=== PATIENT | male | born 1935 | race Caucasian/White ===

== ENCOUNTER 2016-06-06 13:42 | Observation (INO) | payer BC, OTHER ==
[~2016-06-06] VITALS: Ht 175.3 cm; Wt 92.9 kg
[~2016-06-06 13:42] MED LIST: DONE1TAB26 PO; ERGO500037 PO; FLUT0.15 NAE; FRS/40 PO; GLC/500 PO; INSDGIPEN SC; LEVO112T2 PO; LINA1TAB PO; METHENAMINE HIPPURATE PO; NZRCR TOP; PRLSR20 PO; QUIN5TAB12 PO; SIMV40TA2 PO; UMEC1AER INH
[2016-06-06] MEDS ORDERED: SODIUM CHLORIDE 0.9% 1000ML 500 ML IV STA (14:11)
--- NOTE | 2016-06-06 14:17 | EMERGENCY ROOM VISIT NOTE ---
History Report prepared by Hilda: Kandi Alvarado Under the Supervision of: Dr. Ezio Cool M.D. First contact with patient: 13:59 Chief Complaint: IRREGULAR HEARTBEAT Stated Complaint: IRREGULAR HEARTBEAT Nursing Triage Summary: pt to the ED with c/o feeling poorly for several weeks and HR 130-140's states they gave him meds for it and it has been in the 110's feels like his heart is racing with weakness in legs and feeling tired sunday got lightheaded while week wacking and had near syncope +Sob no pain now History of Present Illness The patient is a 80 year old male who presents to the Emergency Room with complaints of an intermittent irregular heart rate that began one month ago. The patient states that today he noted that his blood pressure was elevated and his pulse was 96 beats per minute but irregular. The patient states that each time his heart rate feels irregular, he becomes pale and diaphoretic. The patient notes increased chest pain with his irregular heart rate. He states that his symptoms have been alleviated with rest. The patient states that each time his rate is irregular he has been feeling extremely fatigued. He states that he follows with a food critic in [place] for two coronary artery blockages. The patient notes a 50% blockage and an 80% blockage that was revealed one year ago. He states that he has been feeling short of breath and notes a history of COPD. The patient additionally notes a history of diabetes. He states that he takes two 81 mg aspirin daily. The patient denies any melena or hematochezia. He denies any history of a previous GI bleed or previous blood transfusion. Source of History: patient Onset: one month ago Position: other (global) Quality: other (irrgeular heart rate) Timing: intermittent Associated Symptoms: + SOB, + chest pain, + diaphoresis, + fatigue, No hematochezia, No melena Note: Associated Symptoms: pale Review of Systems See HPI for pertinent positives & negatives. A total of 10 systems reviewed and were otherwise negative. Past Medical & Surgical Medical Problems: (1) Angina pectoris (2) CAD (coronary artery disease) (3) Diabetes (4) High cholesterol (5) HTN (hypertension) Family History No pertinent family history stated. Social History Smoking Status: Former Smoker Marital Status: Housing Status: lives with family Occupation Status: retired Current/Historical Medications Scheduled Atorvastatin (Lipitor), 20 MG PO HS Carvedilol (Coreg), 3.125 MG PO BID Diltiazem Hcl (Cardizem), 120 MG PO DAILY Donepezil Hydrochloride (Donepezil Hcl), 10 MG PO DAILY Furosemide (Lasix), 20 MG PO DAILY Insulin Glargine (Lantus Solostar), 20 UNITS SC DAILY Levothyroxine Sodium (Synthroid), 112 MCG PO DAILY Metformin Hcl (Glucophage), 1,000 MG PO BID Methenamine Hippurate (Hiprex), 1 GM PO BID Omeprazole (Prilosec), 20 MG PO DAILY Quinapril HCl (Quinapril HCl), 5 MG PO DAILY Allergies Coded Allergies: No Known Allergies (Unverified , 02/15/16) Physical Exam Vital Signs Date Time Temp Pulse Resp B/P Pulse Ox O2 Delivery O2 Flow Rate FiO2 06/06/16 15:35 78 18 110/65 98 Room Air 06/06/16 14:32 85 06/06/16 14:31 91 16 133/76 06/06/16 13:44 36.4 88 20 143/86 97 Room Air Physical Exam GENERAL: Patient is in no acute distress. HEENT: No acute trauma, normocephalic atraumatic, mucous membranes moist, no nasal congestion, no scleral icterus. NECK: No stridor, no adenopathy, no meningismus, trachea is midline. LUNGS: Clear to auscultation bilaterally, no wheeze, no rhonchi, breath sounds equal. HEART: Without murmurs gallops or rubs, regular rate and rhythm. ABDOMEN: Soft, nontender, bowel sounds positive, no hernias, no peritonitis. RECTAL: Brown stool, heme negative. EXTREMITIES: No cyanosis or edema, full range of motion of all the joints without pain or difficulty, no signs for acute trauma. NEUROLOGIC: Oriented x 3, no acute motor or sensory deficits, no focal weakness. SKIN: No rash, no jaundice, no diaphoresis. Medical Decision & Procedures ER Provider Diagnostic Interpretation: X-ray results as stated below per interpretation by me and the radiologist: CHEST ONE VIEW PORTABLE CLINICAL HISTORY: CHEST PAIN dyspnea COMPARISON STUDY: 02/15/2016 FINDINGS: The bones soft tissues and hemidiaphragms are normal. The cardiomediastinal silhouette is normal. The lungs are clear. The pulmonary vasculature is normal. IMPRESSION: Negative chest. Electronically signed by: Neil Hernandez M.D. 06/06/2016 2:29 PM Dictated Date/Time: 06/06/2016 2:28 PM Laboratory Results 06/06/16 14:25 06/06/16 14:25 Test 06/06/16 14:25 Red Blood Count 3.62 M/uL (4.7-6.1) Mean Corpuscular Volume 82.0 fL (80-100) Mean Corpuscular Hemoglobin 26.2 pg (25-34) Mean Corpuscular Hemoglobin Concent 32.0 g/dl (32-36) RDW Standard Deviation 45.2 fL (36.4-46.3) RDW Coefficient of Variation 15.2 % (11.5-14.5) Mean Platelet Volume 9.0 fL (7.4-10.4) Prothrombin Time 10.7 SECONDS (9.0-12.0) Prothromb Time International Ratio 1.0 (0.9-1.1) Activated Partial Thromboplast Time 26.9 SECONDS (21.0-31.0) Partial Thromboplastin Ratio 1.0 Anion Gap 9.0 mmol/L (3-11) Est Creatinine Clear Calc Drug Dose 57.4 ml/min Estimated GFR () 66.7 Estimated GFR (Non- 57.6 BUN/Creatinine Ratio 12.3 (10-20) Calcium Level 8.4 mg/dl (8.5-10.1) Magnesium Level 2.1 mg/dl (1.8-2.4) Total Bilirubin 0.5 mg/dl (0.2-1) Aspartate Amino Transf (AST/SGOT) 13 U/L (15-37) Alanine Aminotransferase (ALT/SGPT) 28 U/L (12-78) Alkaline Phosphatase 71 U/L (45-117) Troponin I < 0.015 ng/ml (0-0.045) Total Protein 7.3 gm/dl (6.4-8.2) Albumin 3.6 gm/dl (3.4-5.0) Globulin 3.7 gm/dl (2.5-4.0) Albumin/Globulin Ratio 1.0 (0.9-2) Thyroid Stimulating Hormone (TSH) 0.876 uIu/ml (0.300-4.500) Free Thyroxine 1.29 ng/dl (0.80-1.60) Laboratory results reviewed by me. Medications Administered Medications (Trade) Dose Ordered Sig/Maya Route Start Time Stop Time Status Last Admin Dose Admin Sodium Chloride (Nss 1000ml) 500 ml @ 999 mls/hr Q31M STAT IV 06/06/16 14:11 06/06/16 14:41 DC 06/06/16 14:29 999 MLS/HR ECG Indication: chest pain, other (irregular heart rate) Rate (beats per minute): 89 Rhythm: normal sinus Findings: no acute ischemic change, no ectopy ED Course 1401: The patient was evaluated in room B11B. A complete history and physical exam was performed. 1411: Ordered Sodium Chloride 500 ml @ 999 mls/hr IV. 1515: I reevaluated the patient at this time and he is doing fine. I did a rectal exam at this time. See physical exam for further detail. I discussed all the exam findings with him and I discussed the treatment plan. He verbalized complete understanding and agreement. He will be evaluated for further treatment. 1523: I discussed the patients case with DAINA Torres. He is going to evaluate the patient for further treatment. Medical Decision The patient is a 80 year old male who presents to the ED with complaints of an irregular heart rate. Differential diagnoses considered include cardiac ischemia, SVT, a-fib, angina, electrolyte imbalance, anemia, CT. There is no leukocytosis. The patient is anemic with a hemoglobin of 9.5-stool heme testing was negative. There was no significant electrolyte abnormality, kidney failure or hepatitis. No coagulopathy. EKG showed a normal sinus rhythm , no acute ischemia. Cardiac enzyme testing 1 is not suggestive of acute cardiac injury. Chest x-ray shows no mediastinal widening, pneumonia or pneumothorax. The patient presents with exertional discomfort in his chest and shortness of breath. He has felt palpitations and extreme fatigue. Things have been worsening. He has known cardiac disease. The patient received IV saline, he was asymptomatic during his time here in the emergency room. The patient deserves further cardiac workup. Admission/observation is warranted. Certainly, angina is a concern. I spoke to the patient and to case management. The on-call hospitalist was consulted. Consults Time Called: 1520 Consulting Physician: DAINA Torres Returned Call: [phone] I discussed the patients case with DAINA Torres. He is going to evaluate the patient for further treatment. Impression Primary Impression: Palpitations Additional Impressions: Shortness of breath Anemia Scribe Attestation The scribe's documentation has been prepared under my direction and personally reviewed by me in its entirety. I confirm that the note above accurately reflects all work, treatment, procedures, and medical decision making performed by me. Departure Information Dispostion Being Evaluated By Hospitalist Referrals Sergey Li MD (PCP) Problem Qualifiers
--- NOTE | 2016-06-06 14:31 | DIAGNOSTIC IMAGING REPORT ---
CHEST ONE VIEW PORTABLE CLINICAL HISTORY: CHEST PAIN dyspnea COMPARISON STUDY: 02/15/2016 FINDINGS: The bones soft tissues and hemidiaphragms are normal. The cardiomediastinal silhouette is normal. The lungs are clear. The pulmonary vasculature is normal. IMPRESSION: Negative chest. Electronically signed by: Neil Hernandez M.D. 06/06/2016 2:29 PM Dictated Date/Time: 06/06/2016 2:28 PM
[2016-06-06 14:33] LABS: HEMATOCRIT 29.7 % (42-52); MEAN CORPUSCULAR HEMOGLOBIN 26.2 pg (25-34); PLATELET COUNT 307 K/uL (130-400); RED BLOOD COUNT 3.62 M/uL (4.7-6.1); WHITE BLOOD COUNT 7.96 K/uL (4.8-10.8)
[2016-06-06 14:43] LABS: PROTHROMBIN TIME (PATIENT) 10.7 SECONDS (9.0-12.0)
[2016-06-06] MEDS ORDERED: ATOR-22 PO (14:54)
[2016-06-06] MEDS ORDERED: METH-1117 PO (14:54)
[2016-06-06] MEDS ORDERED: DILT120T8 PO (14:54)
[2016-06-06] MEDS ORDERED: FURO-85 PO (14:54)
[2016-06-06] MEDS ORDERED: CARV3.122 PO (14:54)
[2016-06-06 14:55] LABS: ALT/SGPT 28 U/L (12-78); AST/SGOT 13 U/L (15-37); BLOOD UREA NITROGEN 15 mg/dl (7-18); BUN/CREATININE RATIO 12.3 (10-20); CALCIUM 8.4 mg/dl (8.5-10.1); CARBON DIOXIDE 26 mmol/L (21-32); CHLORIDE 104 mmol/L (98-107); GLUCOSE 165 mg/dl (70-99); MAGNESIUM 2.1 mg/dl (1.8-2.4); POTASSIUM 4.1 mmol/L (3.5-5.1); SODIUM 139 mmol/L (136-145)
[2016-06-06 15:03] LABS: ALKALINE PHOSPHATASE 71 U/L (45-117); THYROID STIMULATING HORMONE 0.876 uIu/ml (0.300-4.500)
[2016-06-06] MEDS ORDERED: ONDANSETRON INJ 2 MG/ML 2 ML VIAL IV PRN (15:45)
[2016-06-06] MEDS ORDERED: ACETAMINOPHEN 325 MG TAB PO PRN (15:45)
[2016-06-06] MEDS ORDERED: NITROGLYCERIN 0.4 MG SL PER TAB CHARGE SL PRN (15:45)
[2016-06-06] MEDS ORDERED: MoRPHine SULFATE 2 MG/ML CARP IV PRN (15:45)
[2016-06-06 15:48] VITALS: O2SAT 98; Ht 175.3 cm; Wt 92.9 kg
[2016-06-06] MEDS ORDERED: GLUCOSE 40% GEL 15 GM TUBE PO PRN (16:00)
[2016-06-06] MEDS ORDERED: GLUCOSE 10 TABS/TUBE PO PRN (16:00)
[2016-06-06] MEDS ORDERED: DEXTROSE 50% 50 ML SYR IV PRN (16:00)
[2016-06-06] MEDS ORDERED: GLUCAGON FOR INJ 1 MG VIAL SQ PRN (16:00)
[2016-06-06 16:43] VITALS: BP 127/77; PULSE 90; TEMP 36.7; O2SAT 97
[2016-06-06 16:45] VITALS: O2SAT 98
--- NOTE | 2016-06-06 17:02 | History and Physical ---
History & Physical Date & Time of Service: Jun 06, 2016 at 16:39 Chief Complaint: Angina Pectoris;Cad Primary Care Physician: Sergey Li MD History of Present Illness Source: patient, family, hospital records 80 yo male with history of CAD (known lesions of 50% and 80%, no stents), HTN, DM and hyperlipidemia, presents to the ED due to tachycardia, palpitations, diaphoresis and feeling weak. This has been going on intermittently for several weeks. He notices that he gets these symptoms with even minimal exertion. He gives an example, that he can typically cut his small yard and do the weeding in an hour. However, it has taken him an entire week to get the work done this week due to palpitations, sweats and weakness any time he exerts himself. When asked about chest pain he says that he "always" has chest pain but he does not notice the pain or pressure getting worse when he exerts himself. Over the past weekend he had these symptoms when climbing a flight of stairs which is abnormal for him. Today he was visiting this hospital to see his grandchild and he felt weak, palpitations and needed to sit down after walking into the hospital. He was advised to report to the ED for evaluation. In the ED his EKG showed NSR without any ischemia and his troponin was negative. Blood work showed a Hb of 9.5. Patient unsure if this is new or not , has not been told of anemia in the past. He denies any dark discoloration to his stools. Past Medical/Surgical History Prostate cancer, s/p prostatectomy CAD - told he has a 50% lesion and 80% lesion, managed medically HTN Diabetes Hyperlipidemia Hypothyroidism s/p Appendectomy s/p Lumbar surgery s/p heart catheterization s/p right shoulder arthroscopy s/p colonoscopy Family History Father - of stroke Mother - lived until her 90's Social History Smoking Status: Former Smoker (quit 50 years ago) Alcohol Use: none Drug Use: none Marital Status: Housing status: lives with family Occupational Status: employed Allergies Coded Allergies: No Known Allergies (Unverified , 02/15/16) Home Medications Scheduled Atorvastatin (Lipitor), 20 MG PO HS Carvedilol (Coreg), 3.125 MG PO BID Diltiazem Hcl (Cardizem), 120 MG PO DAILY Donepezil Hydrochloride (Donepezil Hcl), 10 MG PO DAILY Furosemide (Lasix), 20 MG PO DAILY Insulin Glargine (Lantus Solostar), 20 UNITS SC DAILY Levothyroxine Sodium (Synthroid), 112 MCG PO DAILY Metformin Hcl (Glucophage), 1,000 MG PO BID Methenamine Hippurate (Hiprex), 1 GM PO BID Omeprazole (Prilosec), 20 MG PO DAILY Quinapril HCl (Quinapril HCl), 5 MG PO DAILY Review of Systems Constitutional: + sweats (when he has palpitations), No chills, No fatigue, No fever, No problem reported, No weakness, No weight loss Eyes: No diplopia, No discharge, No eye pain, No problem reported, No redness, No worsening of vision ENT: No dental problems, No hearing loss, No nasal symptoms, No problem reported, No sore throat, No tinnitus, No trouble swallowing, No unusual epistaxis Respiratory: No cough, No dyspnea at rest, No dyspnea on exertion, No hemoptysis, No problem reported, No shortness of breath, No sputum, No wheezing Cardiovascular: + palpitations (tachycardia), No PND, No chest pain, No claudication, No edema, No orthopnea, No problem reported Abdomen: No GI bleeding, No constipation, No diarrhea, No nausea, No pain, No problem reported, No vomiting Musculoskeletal: No calf pain, No joint pain, No muscle pain, No problem reported, No swelling Genitourinary - Male: No dysuria, No hematuria, No urinary frequency, No urinary urgency Neurologic: + problem reported (light headed), + weakness, No balance problems , No memory loss, No numbness/tingling, No paralysis, No vertigo Psychiatric: No anhedonism, No anxiety, No depression symptoms, No insomnia, No problem reported, No substance abuse Endocrine: No excessive thirst, No excessive urination, No fatigue, No problem reported Hematologic / Lymphatic: No abnormal bleeding/bruising, No clotting problems, No night sweats, No problem reported, No swollen lymph nodes Integumentary: No bleeding, No color change, No itch, No new/changing skin lesions, No problem reported, No rash Allergic / Immunologic: No environmental allergies, No food allergies, No frequent infections, No hives, No pet sensitivities, No poor healing, No problem reported, No prolonged convalescence, No seasonal allergies Physical Exam Vital Signs Date Time Temp Pulse Resp B/P Pulse Ox O2 Delivery O2 Flow Rate FiO2 06/06/16 15:48 98 Room Air 06/06/16 15:35 78 18 110/65 98 Room Air 06/06/16 14:32 85 06/06/16 14:31 91 16 133/76 06/06/16 13:44 36.4 88 20 143/86 97 Room Air General Appearance: WD/WN, no apparent distress Head: normocephalic, atraumatic Eyes: normal inspection, EOMI, sclerae normal ENT: normal ENT inspection, hearing grossly normal, pharynx normal Neck: supple, no adenopathy, no JVD, trachea midline Respiratory/Chest: chest non-tender, lungs clear, normal breath sounds, no respiratory distress, no accessory muscle use Cardiovascular: regular rate, rhythm, no edema, no gallop, no JVD, no murmur, normal peripheral pulses Abdomen/GI: normal bowel sounds, non tender, soft, no organomegaly Back: normal inspection, no CVA tenderness, no muscle spasm, normal range of motion Extremities/Musculoskelatal: normal inspection, no calf tenderness, normal capillary refill, no pedal edema, normal range of motion 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, no motor/sensory deficits, alert, normal mood/affect, normal reflexes, oriented x 3 Skin: normal color, warm/dry, no rash Lymphatic: no adenopathy Diagnostics Laboratory Results Results Past 24 Hours Test 06/06/16 14:25 Range/Units White Blood Count 7.96 4.8-10.8 K/uL Red Blood Count 3.62 4.7-6.1 M/uL Hemoglobin 9.5 14.0-18.0 g/dL Hematocrit 29.7 42-52 % Mean Corpuscular Volume 82.0 80-100 fL Mean Corpuscular Hemoglobin 26.2 25-34 pg Mean Corpuscular Hemoglobin Concent 32.0 32-36 g/dl RDW Standard Deviation 45.2 36.4-46.3 fL RDW Coefficient of Variation 15.2 11.5-14.5 % Platelet Count 307 130-400 K/uL Mean Platelet Volume 9.0 7.4-10.4 fL Prothrombin Time 10.7 9.0-12.0 SECONDS Prothromb Time International Ratio 1.0 0.9-1.1 Activated Partial Thromboplast Time 26.9 21.0-31.0 SECONDS Partial Thromboplastin Ratio 1.0 Sodium Level 139 136-145 mmol/L Potassium Level 4.1 3.5-5.1 mmol/L Chloride Level 104 98-107 mmol/L Carbon Dioxide Level 26 21-32 mmol/L Anion Gap 9.0 3-11 mmol/L Blood Urea Nitrogen 15 7-18 mg/dl Creatinine 1.20 0.60-1.40 mg/dl Est Creatinine Clear Calc Drug Dose 57.4 ml/min Estimated GFR () 66.7 Estimated GFR (Non- 57.6 BUN/Creatinine Ratio 12.3 10-20 Random Glucose 165 70-99 mg/dl Calcium Level 8.4 8.5-10.1 mg/dl Magnesium Level 2.1 1.8-2.4 mg/dl Total Bilirubin 0.5 0.2-1 mg/dl Aspartate Amino Transf (AST/SGOT) 13 15-37 U/L Alanine Aminotransferase (ALT/SGPT) 28 12-78 U/L Alkaline Phosphatase 71 45-117 U/L Troponin I < 0.015 0-0.045 ng/ml Total Protein 7.3 6.4-8.2 gm/dl Albumin 3.6 3.4-5.0 gm/dl Globulin 3.7 2.5-4.0 gm/dl Albumin/Globulin Ratio 1.0 0.9-2 Thyroid Stimulating Hormone (TSH) 0.876 0.300-4.500 uIu/ml Free Thyroxine 1.29 0.80-1.60 ng/dl CXR normal Normal EKG Impression Assessment and Plan 80 yo male with history of CAD, presents with 3 weeks of worsening palpitations , tachycardia, diaphoresis and weakness that are brought on by exertion - Exertional palpitations/weakness/diaphoresis: possible anginal equivalent in patient with known CAD and DM so symptoms could be atypical EKG normal and troponin negative, observe on tele and cycle enzymes, request records from [facility] could also be paroxysmal atrial fibrillation, since his symptoms are exertional, could consider walking in halls tomorrow on monitor will ask cardiology to evaluate and give recommendations tomorrow - CAD: continue Coreg, statin, aspirin - Anemia: unsure if this is new, normocytic on lab work he denies melena check ferritin, iron panel, folate, vitamin b12 - HTN: continue home meds - Hyperlipidemia: continue statin - DM: continue Lantus 20 units, Novolog SS - DVT prophylaxis: Lovenox Level of Care Telemetry Advanced Directives Existing Living Will: No Existing Power of [employer]: No Resuscitation Status FULL RESUSCITATION VTE Prophylaxis VTE Risk Assessment Done? Y/N: Yes Risk Level: Moderate Given or contraindicated: Enoxaparin (Lovenox)SQ Additional Copies To Sergey Li MD
[2016-06-06 20:14] VITALS: BP 123/72; PULSE 75; TEMP 37.5; O2SAT 98
[2016-06-06] MEDS ORDERED: ENOXAPARIN 40 MG/0.4 ML SYR SC SCH (21:00)
[2016-06-06] MEDS ORDERED: ATORVASTATIN 20 MG TAB PO SCH (21:00)
[2016-06-06] MEDS: CARVEDILOL 3.125 MG TAB PO SCH (21:01)
[2016-06-06] MEDS: METHENAMINE HIPPURATE 1 GM TAB PO SCH (21:02)
[2016-06-06] MEDS: INSULIN ASPART 100 UNITS/ML 3 ML PEN SC SCH (21:13)
[2016-06-06 22:29] LABS: CKMB/CK RATIO 1.2 (0-3.0)
[2016-06-06 23:59] VITALS: BP 123/72; PULSE 75; TEMP 37.5; O2SAT 98
[2016-06-07 03:46] VITALS: BP 119/58; PULSE 76; TEMP 36.6; O2SAT 94
[2016-06-07] MEDS ORDERED: LEVOTHYROXINE 112 MCG TAB PO SCH (06:00)
[2016-06-07 07:03] LABS: CKMB/CK RATIO 1.1 (0-3.0); FERRITIN 6.3 ng/ml (8.0-388.0); TOTAL IRON BINDING CAPACITY 358 mcg/dl (250-450)
[2016-06-07 08:00] VITALS: O2SAT 94
[2016-06-07] MEDS: METHENAMINE HIPPURATE 1 GM TAB PO SCH (08:14)
[2016-06-07] MEDS: CARVEDILOL 3.125 MG TAB PO SCH (08:15)
[2016-06-07] MEDS: INSULIN ASPART 100 UNITS/ML 3 ML PEN SC SCH ×3 (08:19→16:49)
[2016-06-07 08:28] VITALS: BP 122/75; PULSE 74; TEMP 36.8; O2SAT 97
[2016-06-07] MEDS ORDERED: FUROSEMIDE 20 MG TAB PO SCH (09:00)
[2016-06-07] MEDS ORDERED: DILTIAZEM HCL 120 MG CAPCR PO SCH (09:00)
[2016-06-07] MEDS ORDERED: ASPIRIN 81 MG ECTAB PO SCH (09:00)
[2016-06-07] MEDS ORDERED: PANTOprazole SOD 40 MG TAB PO SCH (09:00)
[2016-06-07] MEDS ORDERED: INSULIN GLARGINE SOLOSTAR 100 UNITS/ML 3 ML PEN SC SCH (09:00)
[2016-06-07] MEDS ORDERED: DONEPEZIL HCL 10 MG TAB PO SCH (09:00)
[2016-06-07] MEDS ORDERED: ENALAPRIL MALEATE 5 MG TAB PO SCH (09:00)
[2016-06-07 12:00] VITALS: BP 128/68; PULSE 78; TEMP 36.8; O2SAT 94; O2SAT 97
[2016-06-07] MEDS ORDERED: PERFLUTREN LIPID MICROSPHERE (DEFINITY) IV ONE (12:03)
--- NOTE | 2016-06-07 13:59 | EXERCISE STRESS ECHO ---
*NOTICE TO RECEIVING DEMOCRAT AGENCY This information is strictly Confidential and protected under [place] law. [place] law prohibits you from making any further disclosure of this information unless further disclosure is expressly permitted by the written consent of the person to whom it pertains or is authorized by law. A general authorization for the release of medical or other information is not sufficient for this purpose. Hospital accepts no responsibility if the information is made available to any other person, INCLUDING THE PATIENT. Interpretation Summary * Name: ANA VILA Study Date: 06/07/2016 10:32 AM BP: 140/74 mmHg * Patient Location: .2E\S\E212\S\1 HR: 86 * : 1935 (M/d/yyyy) Gender: Male Height: 69 in * Age: 80 yrs Ethnicity: CA Weight: 204 lb * Ordering Physician: Prince Ken * Performed By: Cecily Alexander RDCS * * Reason For Study: CAD * BSA: 2.1 m2 * Resting echocardiogram with normal biventricular systolic function, left ventricular diastolic dysfunction, and no significant valvular abnormalities. * This was a normal stress echocardiogram. * The left ventricular ejection fraction increases normally with stress. The left ventricular end-systolic cavity size reduces post-stress (normal response). The left ventricular wall motion with stress is normal. * The stress echocardiogram is negative for inducible ischemia. * The stress ECG response was normal * -- Conclusions -- * Aortic valve sclerosis mild, without significant aortic valvular stenosis. Procedure Details * ECHOEX, CPT #[id number] * ECHO DOPPLER, CPT #[id number] * ECHO COLOR FLOW, CPT #[id number] * A contrast injection of Definity was performed to improve assessment of LV function. * Contrast was injected into an intravenous site in the right arm. * One vial of Definity ultrasound contrast was diluted in normal saline to a total volume of 10 ml. A total of '4' ml of solution was administered during imaging. * Lot # [id number] of Definity utilized for procedure. * Expiration date 1 APR 08. * The attending nurse who injected the contrast agent was January Scherer RN. Left Ventricle * The left ventricle is normal in size. * There is normal left ventricular wall thickness. * Left ventricular systolic function is normal. * The left ventricular ejection fraction increases normally with stress. The left ventricular end-systolic cavity size reduces post-stress (normal response). The left ventricular wall motion with stress is normal. * A full diastolic examination was done with clinical findings of Class I diastolic dysfunction. * Resting wall motion: Normal. Stress wall motion: Appropriate increase in Left ventricular systolic function and decrease in cavity size. No stress induced segmental wall motion abnormalities. * The left ventricular wall motion is normal at rest. Right Ventricle * The right ventricle is normal in size and function. * The right ventricular systolic function is normal as assessed by tricuspid annular plane systolic excursion (TAPSE) (normal >1.5 cm). Atria * The left atrial size is normal. * Right atrial size is normal. * No ASD detected; PFO is not assessed. Mitral Valve * There is mild mitral annular calcification. * There is no mitral valve stenosis. * There is no mitral regurgitation noted. Tricuspid Valve * The tricuspid valve is normal. * There is no tricuspid stenosis. * There is trace tricuspid regurgitation. Aortic Valve * The aortic valve is trileaflet. * The aortic valve opens well. * Aortic valve sclerosis mild, without significant aortic valvular stenosis. * No aortic regurgitation is present. Pulmonic Valve * The pulmonic valve is not well seen, but is grossly normal. * Pulmonic stenosis is absent. * There is no pulmonic valvular regurgitation. Great Vessels * The aortic root is normal size. Pericardium * There is no pericardial effusion. Stress Parameters * The baseline ECG displays normal sinus rhythm. * The baseline ECG displays normal ST segments. * The stress ECG response was normal * Rare PAC and PVC in the recovery phase. * The stress portion of this study was personally supervised by the undersigned interpreting physician. * Rest heart rate was '86' BPM. * Rest blood pressure was '140/74' * Maximum heart rate achieved was 130 bpm. * Maximum heart rate was 91 % of maximum age-predicted heart rate. * Maximum blood pressure was '184/67' * Total exercise time was '3:21' * Maximum exercise MET level achieved was '5.00' METS * Maximum treadmill speed was '2.50' miles per hour. * Maximum treadmill elevation was '12.00'% grade. * Exercise was terminated due to 'achieving target heart rate' * The patient exhibited nausea during exercise. * Normal blood pressure response to exercise. * The patient complained of nausea and weakness at peak exercise. No evidence of ischemia. No arrhythmias at that time. BP was 181/69. MMode 2D Measurements and Calculations IVSd 0.98 cm LVIDd 3.3 cm LVIDs 2.5 cm LVPWd 0.89 cm IVS/LVPW 1.1 FS 25.1 % EDV(Teich) 43.4 ml ESV(Teich) 21.3 ml EF(Teich) 50.9 % EDV(cubed) 35.2 ml ESV(cubed) 14.8 ml EF(cubed) 58.0 % LV mass(C)d 85.0 grams LV mass(C)dI 40.8 grams/m\S\2 SV(Teich) 22.1 ml SI(Teich) 10.6 ml/m\S\2 SV(cubed) 20.5 ml SI(cubed) 9.8 ml/m\S\2 Ao root diam 3.7 cm Ao root area 10.6 cm\S\2 ACS 1.7 cm LA dimension 2.1 cm asc Aorta Diam 2.7 cm LA/Ao 0.57 LVOT diam 2.0 cm LVOT area 3.1 cm\S\2 Doppler Measurements and Calculations MV E max mikey 66.1 cm/sec MV A max mikey 108.1 cm/sec MV E/A 0.61 MV dec time 0.38 sec Ao V2 max 176.2 cm/sec Ao max PG 12.4 mmHg Ao max PG (full) 8.5 mmHg KATJA(V,A) 1.8 cm\S\2 KATJA(V,D) 1.8 cm\S\2 LV V1 max PG 3.9 mmHg LV V1 max 99.2 cm/sec PA V2 max 124.9 cm/sec PA max PG 6.2 mmHg PA acc slope 855.1 cm/sec\S\2 PA acc time 0.07 sec PA pr(Accel) 47.3 mmHg
--- NOTE | 2016-06-07 14:13 | CARDIOLOGY CONSULTATION ---
DATE OF CONSULTATION: 06/07/2016 DATE OF CONSULTATION: 06/07/2016. REFERRING PHYSICIAN: Ming Ojeda DO. ATTENDING PHYSICIAN: Joshua Ruiz MD. PRIMARY PHYSICIAN: Sergey Li MD. CONSULTATION: Prince Ken MD. HISTORY OF PRESENT ILLNESS: The patient is a 80-year-old white male. He is from the [facility]. He was visiting in [facility] yesterday. His granddaughter recently gave to his great grandchild. While visiting in the maternity unit he complained of tachycardia, diffuse weakness, diaphoresis, nausea, and sensation of tachycardia. He states that a nurse took his blood pressure and it was 178/83. His pulse was 96. He was sent to the Emergency Department for evaluation. Following evaluation in the Emergency Department he was admitted to the telemetry unit. He reports a several week history of decreased exercise tolerance. He complains of profound fatigue, dyspnea, and lightheadedness after exertion. This can occur recently after walking up only one flight of stairs. He also complains of chronic chest pain. This can be a sharp to aching type pain. It is retrosternal in location. No radiation. It can occur at rest or with exertion. He states it can sometimes last throughout an entire day. He had sensation of chest discomfort yesterday. No complaints of chest pain today. He denies orthopnea or PND. No syncope recently. He was admitted in January 2016 at [facility] following a syncopal event. No significant abnormalities were found on monitoring or cardiac imaging. He had an echocardiogram performed which revealed no significant abnormalities. Normal LV function. A head CT scan performed on that admission revealed no acute intracranial abnormalities. The syncopal event had caused him to have a fall. Cardiac enzymes on that January admission were negative for myocardial injury. The echocardiogram revealed LV ejection fraction greater than 70%. Borderline LVH. No cardiac source of emboli noted. No significant valvular abnormalities. At the time of January admission, the patient had been on warfarin therapy for prior history of transient ischemic attack. This was discontinued on the January [facility] admission. The patient normally receives his care in the [facility]. He has had multiple testing and hospitalizations at [facility]. Records from prior hospitalizations at [facility] were available for review by me today. He underwent stress nuclear studies in 2009 and 2012, which were normal. No evidence of ischemia. Stress echo in 2013 normal. These tests were performed for complaints of exertionally precipitated weakness and fatigue and/or chest discomfort. He underwent cardiac catheterization in 2012 for these symptoms. 80% ostial LAD diagonal stenosis noted. This was a small diagonal. Medical therapy was recommended. Repeat cardiac catheterization in June 2015 revealing a 50% mid LAD stenosis, 80% ostial LAD diagonal stenosis, and normal LV systolic function. He underwent Holter monitoring in February 2016. This revealed sinus rhythm, no significant pauses or AV block. No atrial arrhythmias. Rare premature ventricular beats. PAST MEDICAL HISTORY: 1. Hypertension. 2. Diabetes. 3. Dyslipidemia. 4. Transient ischemic attack. 5. Prior history of chest pain. Workup as documented above. 6. Prior history of exertionally precipitated fatigue and weakness. Workup as documented above. 7. History of prostatic carcinoma. 8. History of a suprapubic catheter. 9. Recurrent urinary tract infections. 10. Diverticulosis. 11. Status post arthroscopic surgery, right shoulder. 12. Status post appendectomy. 13. Prior TIAs manifested by weakness of left leg. 14. Transesophageal echo with 1 TIA revealed mild aortic atheroma. 15. Status post back surgery. 16. Hypothyroidism. SOCIAL HISTORY: The patient lives with his . He is a division chief. He has not smoked cigarettes. He does drink an excessive amount of coffee a day. By report, he drinks up to 80 ounces of caffeinated coffee per day. He does not drink alcohol. ALLERGIES: No known drug allergies. FAMILY HISTORY: His mother in her 90s. His father in his 80s. He had prostate cancer. Brother in his 70s. His brother had history of coronary artery disease. CURRENT MEDICATIONS: Furosemide 20 mg daily, Lantus insulin 20 units subcutaneous daily, Cardizem-CD 120 mg daily, Aricept 10 mg daily, pantoprazole 40 mg daily, enalapril 5 mg daily, aspirin 81 mg daily, levothyroxine 112 mcg daily, Lovenox 40 mg subQ at bedtime, atorvastatin 20 mg at bedtime, carvedilol 3.125 mg b.i.d., Urex 1 gram b.i.d., NovoLog scale insulin, and several p.r.n. medications. REVIEW OF SYSTEMS: 1. As above. 2. No recent focal motor weakness. 3. No symptoms of GI bleeding. No other bleeding complaints. 4. He himself denies knowledge of a history of anemia. He denies any workup for anemia. 5. No pulmonary complaints. 6. No fever or chills. 7. Stable weight. Recently stable oral intake. PHYSICAL EXAMINATION: GENERAL: The patient is lying in his bed. No distress. VITAL SIGNS: His supine blood pressure was 140/74. After standing, his blood pressure noel into the 150s systolic. No significant change in his heart rate from supine to standing position. HEAD: Normal. EYES: Pupils constricted bilaterally. Equal size. No scleral icterus. No xanthelasma. NECK: No jugular venous distension. Carotids 2/2 bilaterally. Normal upstroke. No bruits. LUNGS: Normal respiratory effort. Clear. No rales or wheezes. HEART: Regular rate and rhythm. S1, S2 normal. No S3 or S4. No murmur or rub. No gallop. PMI normal. No lifts or heaves. ABDOMEN: Soft. Nontender. No palpable masses or organomegaly. No bruits. EXTREMITIES: No pretibial edema. No cyanosis or clubbing. PULSES: Distal pulses in all extremities palpable. NEUROLOGICAL: Alert and oriented x3. Motor grossly intact. PSYCHIATRIC: Affect normal. DATA: Electrocardiogram performed yesterday in the Emergency Department revealed normal sinus rhythm at a rate of 89 beats per minute. The electrocardiogram was normal. Repeat electrocardiogram performed today with normal ST segments and T-waves. Normal sinus rhythm. No significant change from admission electrocardiogram. Echocardiogram performed today and reviewed by me showed normal resting left ventricular systolic function. Normal LV wall motion. No significant valvular abnormalities. The patient exercised 3 minutes and 21 seconds of the standard Martin protocol. At maximum exercise he complained of lightheadedness, weakness, and nausea. His blood pressure at the time was 181/69. His pulse was 127 beats per minute. His symptoms resolved after being taken off the treadmill and lying down on the stretcher bed. Normal ECG response to exercise. No changes of ischemia. Maximum heart rate was 130 beats per minute. This was 91% of maximum predicted heart rate. The echo response to exercise was entirely normal. Hyperdynamic response in all LV segments. Increase in the LV ejection fraction compared to the resting echo images. No significant arrhythmias are noted. There was 1 isolated premature ventricular beat in the recovery phase. No atrial arrhythmias. Chest x-ray on admission reviewed by me showed no evidence of heart failure. No infiltrate. LABORATORY DATA: Revealed WBC 7.96, hemoglobin 9.5, hematocrit 29.7, and platelet count 307. INR 1.0. PTT 26.9. Troponin I less than 0.015 on 3 determinations. CK totals 110 and 99 with respective MBs of 1.3 and 1.1. Vitamin B12 317. It is normal. Folate 18. It is normal. Iron level decreased at 19. Ferritin decreased at 6.3. ASSESSMENT: 1. Complains of profound fatigue, weakness, lightheadedness after exercise. 2. No evidence of myocardial ischemia or injury on the electrocardiograms performed this admission. No evidence of injury on cardiac enzymes. His cardiac enzymes are all normal. 3. Complaint of lightheadedness and nausea at a maximum level of exercise today. Despite these complaints his blood pressure response to exercise was normal. There were no arrhythmias. No evidence of myocardial ischemia on stress echo by both ECG and echo criteria. Normal resting left ventricular systolic function. No significant valvular abnormalities. The patient has had similar complaints in the past. He has undergone extensive cardiac testing over the past 7 years. This has included 2 cardiac catheterizations, multiple echos, and both stress nuclear scans and stress echocardiograms. None of the noninvasive testing revealed evidence of ischemia. 4. Iron deficiency anemia. No symptoms of GI bleeding. The patient denies he has ever been told in the past he has an anemia. On his January admission to [facility] he had anemia. He denies having undergone any workup in the past for anemia. He states in the remote past, she did have the colonoscopy performed. He does have a history of diverticulosis. This could predispose him to GI blood loss. 5. No evidence of any arrhythmias on monitoring since admission. No significant arrhythmias on stress echo today. Holter monitor performed under the order of his primary care providers in [place] last February revealed no significant abnormalities. RECOMMENDATIONS: 1. From a cardiac standpoint, the patient can be discharged home. No further cardiac workup at this time. 2. The patient needs followup for his anemia. As he has evidence of iron deficiency anemia a repeat GI workup is indicated. This would include colonoscopy and EGD. 3. Would give patient a copy of his current hospital admission chart to take home with him. He can provide this to his primary care provider. 4. Continue current antihypertensive medications. ADDENDUM: The patient has excessive caffeinated coffee intake. This could contribute to his sensation of palpitations. Thank you for asking us to see this patient in cardiology consultation.
--- NOTE | 2016-06-07 15:07 | Discharge Instructions ---
Discharge Instructions Date of Service Jun 07, 2016. Admission Reason for Admission: Angina Pectoris;Cad Discharge Discharge Diagnosis / Problem: Iron deficiecy Anemia Syncope Discharge Goals Goal(s): Improve disease control Activity Recommendations Activity Limitations: resume your previous activity . Instructions / Follow-Up Instructions / Follow-Up Dr. Li 1 week Current Hospital Diet Patient's current hospital diet: AHA Diet (Heart Healthy), Diabetes Type 2 Diet Discharge Diet Recommended Diet: AHA Diet (Heart Healthy), Diabetes Type 2 Diet Pending Studies Studies pending at discharge: no Medical Emergencies . Who to Call and When: Medical Emergencies: If at any time you feel your situation is an emergency, please call 911 immediately. . Non-Emergent Contact Non-Emergency issues call your: Primary Care Provider . Past History Medical & Surgical History: (1) Anemia (2) CAD (coronary artery disease) (3) HTN (hypertension) (4) Diabetes (5) High cholesterol . "Provider Documentation" section prepared by Joshua Ruiz. . VTE Core Measure Inpt VTE Proph given/why not?: Enoxaparin (Lovenox)SQ
[2016-06-07] MEDS ORDERED: FERR324T PO (15:08)
[2016-06-07 16:01] VITALS: BP 128/68; PULSE 78; TEMP 36.8; O2SAT 97
[2016-06-07 16:40] VITALS: BP 110/84; PULSE 71; TEMP 36.6; O2SAT 97
--- NOTE | 2016-06-08 07:33 | Palliative Care Progress Note ---
Palliative Care Progress Note Date of Service Jun 08, 2016. Subjective Patient discharged before palliative consult completed.
--- NOTE | 2016-06-13 17:55 | DISCHARGE SUMMARY ---
Please see dictated H\T\P for full details of his presentation. HISTORY OF PRESENT ILLNESS: The patient is a 80-year-old who was visiting his granddaughter who recently gave to his great-grandchild. He started having tachycardia while visiting in maternity. His blood pressure was found to be 178/83 . He had a several week history of decreased exercise tolerance. CAT scan showed no acute intracranial abnormality. Echocardiogram as performed with EF of 70% with borderline LVH. Cardiac catheterization showed an 80% ostial LAD diagonal stenosis. A 50% mid LAD stenosis and normal LV systolic function. Past medical history of dyslipidemia, transient ischemic attack. He underwent a cardiac work up which were all within normal limits. A stress echocardiogram showed no evidence of wall motion abnormality. No significant valvular abnormalities. Iron defeciency anemia . He was recommended to follow up with his primary care doctor for complete workup of iron deficiency anemia. Hemoglobin was 8.5, hematocrit of 30 and platelet count of 307, MCV 82. Time spent reviewing the chart, discussion with the patient on the date of discharge 31 minutes. VINCENT
== END 2016-06-07 17:44 | disposition home or self-care (01) ==
LOC: ENRESERVTM → ENRESERVDT → C.EDB 13:44 → C.2E 15:42
PROVIDERS: ADMIT Internal Medicine; ATTEND Internal Medicine
DX: R00.2 Palpitations (principal); R06.02 Shortness of breath; I25.709 Atherosclerosis of coronary artery bypass graft(s), unspecified, with unspecified angina pectoris; I10 Essential (primary) hypertension; E11.9 Type 2 diabetes mellitus without complications; E78.00 Pure hypercholesterolemia, unspecified; Z87.891 Personal history of nicotine dependence; Z79.4 Long term (current) use of insulin; Z79.899 Other long term (current) drug therapy; D64.9 Anemia, unspecified; J44.9 Chronic obstructive pulmonary disease, unspecified; E03.9 Hypothyroidism, unspecified; D50.9 Iron deficiency anemia, unspecified; Z86.73 Personal history of transient ischemic attack (TIA), and cerebral infarction without residual deficits